=== PATIENT | female | born 1985 | race Caucasian/White ===

== ENCOUNTER → 2018-07-21 09:35 | Outpatient (CLI) | payer OTHER ==
[~2018-07-21 09:35] MED LIST: GILTUSS TR TAB1 EACH PO; TRENTAL 400 MG PO; ZYRTEC10 MG PO
== END | disposition home or self-care (01) ==
LOC: LAB 09:35
DX: R03.0 Elevated blood-pressure reading, without diagnosis of hypertension (principal); Z13.1 Encounter for screening for diabetes mellitus; Z11.3 Encounter for screening for infections with a predominantly sexual mode of transmission; N92.5 Other specified irregular menstruation

== ENCOUNTER → 2019-08-16 11:46 | Outpatient (CLI) | payer OTHER | END | disposition home or self-care (01) | LOC: LAB 11:46 | DX: N92.5 Other specified irregular menstruation (principal); M25.521 Pain in right elbow; Z00.00 Encounter for general adult medical examination without abnormal findings; Z12.11 Encounter for screening for malignant neoplasm of colon ==

== ENCOUNTER 2019-08-24 08:26 | Outpatient (CLI) | payer OTHER | END 2019-08-24 08:31 | disposition home or self-care (01) | LOC: SONOGRAMA 08:26 | DX: N92.5 Other specified irregular menstruation (principal); M25.521 Pain in right elbow ==

== ENCOUNTER → 2019-11-19 12:03 | Outpatient (CLI) | payer OTHER | END | disposition home or self-care (01) | LOC: LAB 12:03 | DX: J11.1 Influenza due to unidentified influenza virus with other respiratory manifestations (principal) ==

== ENCOUNTER → 2020-08-08 15:00 | Outpatient (CLI) | payer OTHER | END | disposition home or self-care (01) | LOC: PPH VACUNA 15:00 | DX: Z23 Encounter for immunization (principal) ==

== ENCOUNTER 2020-10-04 06:55 | Emergency (ER) | payer OTHER ==
[~2020-10-04] VITALS: Ht 160 cm; Wt 113.4 kg
[2020-10-04] MEDS ORDERED: BACTRIM DS TAB1 EACH PO (10:13)
== END 2020-10-04 10:37 | disposition home or self-care (01) ==
LOC: ER 06:55
DX: N39.0 Urinary tract infection, site not specified (principal)

== ENCOUNTER 2020-10-31 15:20 | Outpatient (CLI) | payer OTHER ==
[~2020-10-31 15:20] MED LIST changes: +BACTRIM DS TAB1 EACH PO
== END 2020-10-31 18:50 | disposition home or self-care (01) ==
LOC: PPH VACUNA 15:20
DX: Z23 Encounter for immunization (principal)

== ENCOUNTER 2021-08-13 08:00 | Outpatient (CLI) | payer OTHER | END 2021-08-13 08:30 | disposition home or self-care (01) | LOC: PPH VACUNA 08:00 | PROVIDERS: ATTEND Emergency Medicine Pediatric Emergency Medicine | DX: Z23 Encounter for immunization (principal) ==

== ENCOUNTER 2022-08-07 08:00 | Outpatient (CLI) | payer OTHER | END 2022-08-07 08:05 | disposition home or self-care (01) | LOC: PPH VACUNA 08:00 | PROVIDERS: ATTEND Emergency Medicine Pediatric Emergency Medicine | DX: Z23 Encounter for immunization (principal) ==

== ENCOUNTER 2022-12-19 01:53 | Emergency (ER) | payer OTHER ==
[~2022-12-19] VITALS: Ht 160 cm; Wt 114.3 kg
[2022-12-19] MEDS ORDERED: CEPHALEXIN500 MG PO (02:56)
== END 2022-12-19 03:13 | disposition home or self-care (01) ==
LOC: ER 01:53
DX: S61.042A Puncture wound with foreign body of left thumb without damage to nail, initial encounter (principal); Y29.XXXA Contact with blunt object, undetermined intent, initial encounter; Y93.9 Activity, unspecified; Y92.9 Unspecified place or not applicable

== ENCOUNTER 2022-12-27 06:53 | Outpatient (CLI) | payer OTHER ==
[~2022-12-27 06:53] MED LIST changes: +CEPHALEXIN500 MG PO
== END 2022-12-27 07:20 | disposition home or self-care (01) ==
LOC: MAMO-SONO 06:53
PROVIDERS: ATTEND Obstetrics & Gynecology
DX: N63.0 Unspecified lump in unspecified breast (principal); N64.59 Other signs and symptoms in breast; N64.9 Disorder of breast, unspecified; N94.0 Mittelschmerz; R10.2 Pelvic and perineal pain; N94.89 Other specified conditions associated with female genital organs and menstrual cycle

== ENCOUNTER → 2022-12-27 08:37 | Outpatient (CLI) | payer OTHER | END | disposition home or self-care (01) | LOC: LAB 08:37 | PROVIDERS: ATTEND Obstetrics & Gynecology | DX: E03.9 Hypothyroidism, unspecified (principal); Z00.00 Encounter for general adult medical examination without abnormal findings; I10 Essential (primary) hypertension; E78.00 Pure hypercholesterolemia, unspecified; N39.0 Urinary tract infection, site not specified; Z11.4 Encounter for screening for human immunodeficiency virus [HIV]; Z12.11 Encounter for screening for malignant neoplasm of colon; E55.9 Vitamin D deficiency, unspecified; Z21 Asymptomatic human immunodeficiency virus [HIV] infection status; R79.9 Abnormal finding of blood chemistry, unspecified; R79.89 Other specified abnormal findings of blood chemistry ==

== ENCOUNTER 2023-01-02 07:00 | Outpatient (CLI) | payer OTHER | END 2023-01-02 07:08 | disposition home or self-care (01) | LOC: LAB 07:00 | PROVIDERS: ATTEND Obstetrics & Gynecology | DX: Z00.00 Encounter for general adult medical examination without abnormal findings (principal); I10 Essential (primary) hypertension; E03.9 Hypothyroidism, unspecified; E78.00 Pure hypercholesterolemia, unspecified; N39.0 Urinary tract infection, site not specified; Z11.4 Encounter for screening for human immunodeficiency virus [HIV]; Z12.11 Encounter for screening for malignant neoplasm of colon; E55.9 Vitamin D deficiency, unspecified; Z21 Asymptomatic human immunodeficiency virus [HIV] infection status; R79.9 Abnormal finding of blood chemistry, unspecified; R79.89 Other specified abnormal findings of blood chemistry ==

== ENCOUNTER 2023-03-10 12:01 | Outpatient (CLI) | payer OTHER | END 2023-03-10 12:05 | disposition home or self-care (01) | LOC: LAB 12:01 | PROVIDERS: ATTEND Internal Medicine | DX: N93.9 Abnormal uterine and vaginal bleeding, unspecified (principal) ==

== ENCOUNTER 2023-04-11 16:55 | Inpatient (IN) | payer OTHER ==
[~2023-04-11] VITALS: Ht 101.6 cm; Wt 113.4 kg
[2023-04-11] MEDS ORDERED: NORTREL 1-35 21 EAC1 PO (17:04)
--- NOTE | 2023-04-11 17:05 | NUR ---
PTE ALERTA Y ORIENTADA X3. PTE REFIERE SANGRADO VAGINAL DESDE . PTE DEL DR. UGARTE
== END 2023-04-14 08:09 | disposition home or self-care (01) | DRG 745 ==
LOC: ER 16:55 → OB/GYN 20:25 → MEDJ 21:04 → OB/GYN 04-12 10:01
PROVIDERS: ADMIT Obstetrics & Gynecology; ATTEND Obstetrics & Gynecology
PROC: 0UDB8ZZ Extraction of Endometrium, Via Natural or Artificial Opening Endoscopic (ICD-10-PCS; principal; 2023-04-11)
PROC: 0UPD7HZ Removal of Contraceptive Device from Uterus and Cervix, Via Natural or Artificial Opening (ICD-10-PCS; 2023-04-11)
DX: N84.0 Polyp of corpus uteri (principal); Z20.822 Contact with and (suspected) exposure to COVID-19; Z30.432 Encounter for removal of intrauterine contraceptive device

== ENCOUNTER 2023-04-22 10:34 | Outpatient (CLI) | payer OTHER ==
[~2023-04-22 10:34] MED LIST changes: +NORTREL 1-35 21 EAC1 PO
== END 2023-04-22 10:38 | disposition home or self-care (01) ==
LOC: LAB 10:34
PROVIDERS: ATTEND Obstetrics & Gynecology
DX: D64.9 Anemia, unspecified (principal)

== ENCOUNTER 2024-01-26 09:54 | Outpatient (CLI) | payer OTHER ==
[2024-01-26 10:43] LABS: HEMATOCRIT 36.6 % (36.0-45.00); HEMOGLOBIN 11.8 g/dL (12.0-15.00); MEAN CELL VOLUME 74.3 fL (80.00-100.00); MEAN CORPUSCULAR HGB CONC 32.4 g/dl (32.0-36.0); PLATELET COUNT 335 K/uL (150-450); RED BLOOD COUNT 4.92 M/uL (4.00-6.00); RED CELL DISTRIBUTION WIDTH 14.6 % (11.5-14.5)
[2024-01-26 10:49] LABS: PH,URINE 7.5 (5.0-8.0); URINE APPEARANCE Clear; URINE BILIRRUBIN Negative (NEGATIVE); URINE COLOR Yellow; URINE GLUCOSE Negative (NEGATIVE); URINE LEUKOCYTE Negative; URINE NITRATE Negative; URINE PROTEIN Negative (NEGATIVE)
[2024-01-26 10:54] LABS: URINE BACTERIA 123.4 uL (0.0-1933); URINE EPITHELIAL CELLS 13.8 uL (0.0-38.8); URINE RBC 35.3 uL (0.0-20.8); URINE WBC 2.1 uL (0.0-23.2)
[2024-01-26 11:24] LABS: URINE BLOOD TRACES
[2024-01-26 11:28] LABS: ALBUMIN 3.2 gm/dL (3.4-5.0); BILIRUBIN TOTAL 0.26 mg/dL (0.3-1.2); CALCIUM 8.5 mg/dL (8.5-10.1); CHOL HDL RATIO 3.9 (0-5.0); CREATININE SERUM 0.48 mg/dL (0.55-1.02); GFR 143.98; GLOBULINA 3.8 G/DL (2.4-3.5); POTASSIUM 4.44 mEq/L (3.5-5.1); T4 FREE 0.99 NG/ML (0.76-1.46); TSH 1.33 uIU/mL (0.358-3.74)
== END 2024-01-26 09:55 | disposition home or self-care (01) ==
LOC: LAB 09:54
PROVIDERS: ATTEND Obstetrics & Gynecology
DX: E03.9 Hypothyroidism, unspecified (principal); E78.00 Pure hypercholesterolemia, unspecified; I10 Essential (primary) hypertension; Z00.00 Encounter for general adult medical examination without abnormal findings; N39.0 Urinary tract infection, site not specified; Z11.4 Encounter for screening for human immunodeficiency virus [HIV]; Z12.11 Encounter for screening for malignant neoplasm of colon; E55.9 Vitamin D deficiency, unspecified; Z21 Asymptomatic human immunodeficiency virus [HIV] infection status; R79.9 Abnormal finding of blood chemistry, unspecified; R79.89 Other specified abnormal findings of blood chemistry

== ENCOUNTER → 2024-02-20 06:44 | Outpatient (CLI) | payer OTHER ==
[2024-02-20 09:40] LABS: ob NEGATIVE (NEGATIVE)
== END | disposition home or self-care (01) ==
LOC: LAB 06:44
PROVIDERS: ATTEND Obstetrics & Gynecology
DX: E03.9 Hypothyroidism, unspecified (principal); I10 Essential (primary) hypertension; Z00.00 Encounter for general adult medical examination without abnormal findings; N39.0 Urinary tract infection, site not specified; Z11.4 Encounter for screening for human immunodeficiency virus [HIV]; E55.9 Vitamin D deficiency, unspecified; Z21 Asymptomatic human immunodeficiency virus [HIV] infection status; R79.9 Abnormal finding of blood chemistry, unspecified; R79.89 Other specified abnormal findings of blood chemistry

== ENCOUNTER 2024-08-04 13:35 | Outpatient (CLI) | payer OTHER ==
[~2024-08-04 13:35] MED LIST changes: +PROAIR RESPICL90 MCG IH; +TUSNEL LIQUID178 ML PO; +ZITHROMAX500 MG PO
== END 2024-08-04 13:36 | disposition home or self-care (01) ==
LOC: LAB 13:35
PROVIDERS: ATTEND Preventive Medicine Occupational Medicine
DX: B19.10 Unspecified viral hepatitis B without hepatic coma (principal)

== ENCOUNTER 2024-08-24 02:40 | Outpatient (CLI) | payer OTHER | END 2024-08-24 03:00 | disposition home or self-care (01) | LOC: PPH VACUNA 02:40 | PROVIDERS: ATTEND Emergency Medicine Pediatric Emergency Medicine | DX: Z23 Encounter for immunization (principal) ==

== ENCOUNTER 2024-10-03 01:55 | Emergency (ER) | payer OTHER ==
[~2024-10-03] VITALS: Ht 160 cm; Wt 116.6 kg
== END 2024-10-03 04:09 | disposition home or self-care (01) ==
LOC: ER 01:57
DX: J06.9 Acute upper respiratory infection, unspecified (principal)

== ENCOUNTER 2025-01-31 08:19 | Outpatient (CLI) | payer OTHER | END 2025-01-31 08:22 | disposition home or self-care (01) | LOC: LAB 08:19 | PROVIDERS: ATTEND Internal Medicine Infectious Disease | DX: Z33.1 Pregnant state, incidental (principal) ==

== ENCOUNTER → 2025-03-07 11:56 | Outpatient (CLI) | payer OTHER ==
[2025-03-07 13:24] LABS: HEMATOCRIT 36.4 % (36.0-45.00); HEMOGLOBIN 11.7 g/dL (12.0-15.00); MEAN CELL VOLUME 75.2 fL (80.00-100.00); MEAN CORPUSCULAR HEMOGLOBIN 24.1 pg (27.00-32.0); PLATELET COUNT 279 K/uL (150-450); RED BLOOD COUNT 4.84 M/uL (4.00-6.00); RED CELL DISTRIBUTION WIDTH 15.9 % (11.5-14.5)
== END | disposition home or self-care (01) ==
LOC: LAB 11:56
PROVIDERS: ATTEND Internal Medicine Infectious Disease
DX: D64.9 Anemia, unspecified (principal)

== ENCOUNTER → 2025-03-11 06:05 | Outpatient (CLI) | payer OTHER ==
[2025-03-11 07:35] LABS: URINE APPEARANCE Cloudy; URINE BILIRRUBIN Negative (NEGATIVE); URINE BLOOD Negative; URINE COLOR Yellow; URINE GLUCOSE Negative (NEGATIVE); URINE KETONE Negative (NEGATIVE); URINE LEUKOCYTE Small; URINE NITRATE Negative; URINE PROTEIN Negative (NEGATIVE)
[2025-03-11 07:38] LABS: URINE BACTERIA 2458.9 uL (0.0-1933); URINE EPITHELIAL CELLS 33.2 uL (0.0-38.8); URINE RBC 30.4 uL (0.0-20.8); URINE WBC 5.3 uL (0.0-23.2)
[2025-03-11 07:40] LABS: URINE CAST 0.29 uL (0.0-1.40)
[2025-03-11 07:50] LABS: HEMATOCRIT 36.7 % (36.0-45.00); HEMOGLOBIN 11.9 g/dL (12.0-15.00); MEAN CELL VOLUME 74.4 fL (80.00-100.00); MEAN CORPUSCULAR HEMOGLOBIN 24.1 pg (27.00-32.0); MEAN CORPUSCULAR HGB CONC 32.4 g/dl (32.0-36.0); PLATELET COUNT 285 K/uL (150-450); RED BLOOD COUNT 4.93 M/uL (4.00-6.00); RED CELL DISTRIBUTION WIDTH 16.4 % (11.5-14.5)
[2025-03-11 09:27] LABS: RH POSITIVE
[2025-03-11 10:10] LABS: T4 FREE 1.05 NG/ML (0.76-1.46); TSH 0.87 uIU/mL (0.358-3.74)
[2025-03-11 15:24] LABS: RAPID PLASMA REAGIN NONREACTIVE BY RPR (NONREACTIVE)
[2025-03-12 07:09] LABS: hav igm Negative (Negative); hcv Non Reactive (Non Reactive); hep b c Negative (Negative); hep b s ag Negative (Negative)
[2025-03-12 15:10] LABS: hgb a 97.5 % (96.4-98.8); hgb a2 2.5 % (1.8-3.2); hgb f 0 % (0.0-2.0); hgb s 0 % (0.0)
== END | disposition home or self-care (01) ==
LOC: LAB 06:05
PROVIDERS: ATTEND Obstetrics & Gynecology
DX: Z34.81 Encounter for supervision of other normal pregnancy, first trimester (principal)

== ENCOUNTER 2025-05-21 07:10 | Outpatient (CLI) | payer OTHER ==
[2025-05-21 08:01] LABS: URINE BILIRRUBIN Negative (NEGATIVE); URINE BLOOD Negative; URINE COLOR Yellow; URINE GLUCOSE Negative (NEGATIVE); URINE KETONE Negative (NEGATIVE); URINE LEUKOCYTE Small; URINE NITRATE Negative; URINE PROTEIN Negative (NEGATIVE); URINE UROBILINOGEN 1.0 E.U./dl
[2025-05-21 08:02] LABS: URINE BACTERIA 926.4 uL (0.0-1933); URINE EPITHELIAL CELLS 22.8 uL (0.0-38.8); URINE RBC 16.1 uL (0.0-20.8); URINE WBC 10.1 uL (0.0-23.2)
[2025-05-21 08:13] LABS: BASO % 0.6 % (0.1-1.2); EOS # 0.53 (0.04-0.54); EOS % 3.0 % (0.7-7.0); LYMPH # 2.89 (1.18-3.74); LYMPH % 16.4 % (19.3-53.1); MEAN PLATELET VOLUME 9.50 fl (9.4-12.4); MONO # 0.96 (0.24-0.82); MONO % 5.4 % (4.7-12.5); NEUT # 12.90 (1.56-6.13); NEUT % 73.2 % (34.0-71.1); RED CELL DISTRIBUTION WIDTH 15.0 % (11.6-14.4)
[2025-05-21 08:53] LABS: URINE APPEARANCE CLEAR; URINE CAST 0.00 uL (0.0-1.40)
== END 2025-05-21 07:20 | disposition home or self-care (01) ==
LOC: LAB 07:10
PROVIDERS: ATTEND Obstetrics & Gynecology
DX: Z34.82 Encounter for supervision of other normal pregnancy, second trimester (principal)

== ENCOUNTER 2025-06-04 07:16 | Outpatient (CLI) | payer OTHER | END 2025-06-04 07:24 | disposition home or self-care (01) | LOC: LAB 07:16 | PROVIDERS: ATTEND Obstetrics & Gynecology Gynecology | DX: O09.92 Supervision of high risk pregnancy, unspecified, second trimester (principal) ==

== ENCOUNTER 2025-06-11 09:33 | Outpatient (CLI) | payer OTHER | END 2025-06-11 09:39 | disposition home or self-care (01) | LOC: LAB 09:33 | PROVIDERS: ATTEND Obstetrics & Gynecology | DX: E03.9 Hypothyroidism, unspecified (principal) ==

== ENCOUNTER 2025-08-31 12:38 | Inpatient (IN) | payer OTHER ==
[~2025-08-31] VITALS: Ht 160 cm; Wt 3.2 kg
[2025-08-31] MEDS ORDERED: OXYTOCIN 10 UNITS/ML VIAL ONE ×2 (12:45→20:12)
[2025-08-31] MEDS ORDERED: ERYTHROMYCIN BASE OPHT 1GM EACH TUBE OP ONE (12:45)
[2025-08-31] MEDS ORDERED: CHLORHEXIDINE GLUCONATE 120 ML BOTTLE TOP ONE (12:45)
[2025-08-31 13:15] VITALS: BP 122/73
[2025-08-31] MEDS ORDERED: PRENATAL TABLE1 EAC4 PO (13:58)
[2025-08-31] MEDS ORDERED: CITRIC ACID/SODIUM CITRATE 30 ML BLIST.PACK PO SCH (14:00)
[2025-08-31] MEDS ORDERED: CEFOXITIN SODIUM 2,000 MG VIAL IV SCH (14:00)
[2025-08-31] MEDS ORDERED: RINGERS SOLUTION,LACTATED 1,000 ML IV SCH (14:00)
[2025-08-31 14:57] LABS: INR 0.94
[2025-08-31 14:59] LABS: BASO % 0.3 % (0.1-1.2); EOS # 0.26 (0.04-0.54); EOS % 1.7 % (0.7-7.0); LYMPH # 2.50 (1.18-3.74); LYMPH % 16.5 % (19.3-53.1); MEAN PLATELET VOLUME 10.10 fl (9.4-12.4); MONO # 0.97 (0.24-0.82); MONO % 6.4 % (4.7-12.5); NEUT # 11.20 (1.56-6.13); NEUT % 73.9 % (34.0-71.1); RED CELL DISTRIBUTION WIDTH 15.1 % (11.6-14.4)
[2025-08-31 15:25] LABS: ALT/SGPT 21.0 U/L (12-78); AST/SGOT 16.0 U/L (15-37); BILIRUBIN TOTAL 0.32 mg/dL (0.3-1.2); BUN CREA RATIO 15.0 (7.0-25.0); CREATININE SERUM 0.4 mg/dL (0.55-1.02); GFR 176.78; GLOBULINA 3.6 G/DL (2.4-3.5); GLUCOSE FASTING 67.0 mg/dL (65-100); OSMOLALITY SERUM 273.0 MOSM/KG (275-295)
[2025-08-31 15:26] VITALS: BP 122/70
[2025-08-31] MEDS ORDERED: OXYTOCIN 1,000 ML IV SCH (18:00)
[2025-08-31] MEDS ORDERED: MORPHINE SULFATE 4 MG/ML CARTRIDGE IV PRN (18:00)
[2025-08-31 20:48] VITALS: BP 123/73
[2025-09-01 00:49] VITALS: BP 112/61
[2025-09-01] MEDS ORDERED: IRON FUM,PS/FOLIC ACID/VITC/B3 1 CAP CAPSULE PO SCH (09:00)
[2025-09-01] MEDS ORDERED: FF) RHO(D) IMMUNE GLOBULIN (POM) IM ONE (09:00)
[2025-09-01 09:02] VITALS: BP 114/64
[2025-09-01 09:22] LABS: BASO % 0.3 % (0.1-1.2); EOS # 0.11 (0.04-0.54); EOS % 0.7 % (0.7-7.0); LYMPH # 2.00 (1.18-3.74); LYMPH % 12.0 % (19.3-53.1); MEAN PLATELET VOLUME 9.80 fl (9.4-12.4); MONO # 0.83 (0.24-0.82); MONO % 5.0 % (4.7-12.5); NEUT # 13.53 (1.56-6.13); NEUT % 81.4 % (34.0-71.1); RED CELL DISTRIBUTION WIDTH 15.2 % (11.6-14.4)
[2025-09-01 18:54] VITALS: BP 123/71
[2025-09-02 00:57] VITALS: BP 117/74
[2025-09-02] MEDS ORDERED: OxyCODONE HCL 5 MG TABLET (ROXICODONE) PO PRN (06:00)
[2025-09-02 08:00] VITALS: BP 111/73
[2025-09-02 18:20] VITALS: BP 111/68
[2025-09-03] VITALS: BP 114/72
[2025-09-03 08:00] VITALS: BP 113/71
== END 2025-09-03 13:36 | disposition home or self-care (01) | DRG 785 ==
LOC: LDR 12:38 → OB/GYN 12:38 → O/R 16:10 → OB/GYN 16:12
PROVIDERS: Obstetrics & Gynecology; ADMIT Obstetrics & Gynecology; ATTEND Obstetrics & Gynecology
PROC: 0UB70ZZ Excision of Bilateral Fallopian Tubes, Open Approach (ICD-10-PCS; 2025-08-31)
PROC: 0DNW0ZZ Release Peritoneum, Open Approach (ICD-10-PCS; 2025-08-31)
PROC: 4A1HXCZ Monitoring of Products of Conception, Cardiac Rate, External Approach (ICD-10-PCS; 2025-08-31)
PROC: 10D00Z1 Extraction of Products of Conception, Low, Open Approach (ICD-10-PCS; principal; 2025-08-31 12:15)
DX: O34.211 Maternal care for low transverse scar from previous cesarean delivery (principal); Z30.2 Encounter for sterilization; Z37.0 Single live birth; Z3A.38 38 weeks gestation of pregnancy